=== PATIENT | female | born 1945 | race Caucasian/White ===

== ENCOUNTER 2020-04-19 12:01 | Emergency (ER) | payer SELFPAY | END 2020-04-19 12:16 | disposition left against medical advice (07) | LOC: EXPBETH 12:15 | PROVIDERS: Emergency Provider Nurse Practitioner | DX: Z53.21 Procedure and treatment not carried out due to patient leaving prior to being seen by health care provider (principal) | CPT/HCPCS: 99199 ==

== ENCOUNTER 2020-04-19 12:03 | Emergency (ER) | payer MEDICARE, OTHER, SELFPAY ==
[2020-04-19 12:15] VITALS: BP 180/86; PULSE 74; RESP 20; TEMP 37.3; O2SAT 100
== END 2020-04-19 12:25 | disposition left against medical advice (07) ==
LOC: EXPBETH 12:07
PROVIDERS: Emergency Provider Nurse Practitioner; PCP Internal Medicine
DX: Z53.21 Procedure and treatment not carried out due to patient leaving prior to being seen by health care provider (principal)
CPT/HCPCS: 99199

== ENCOUNTER 2021-08-09 08:23 | Emergency (ER) | payer MEDICARE, OTHER, SELFPAY ==
--- NOTE | ~2021-08-09 | XR_ITS ---
EXAMINATION: XR chest 2V EXAM DATE: 08/09/2021 09:54 INDICATION: Cough for 2 days, history of bypass 2015. TECHNIQUE: Frontal and lateral projections of the chest obtained and reviewed. Comparison is made to prior examination from 03/30/2022. FINDINGS: The lungs are hyperinflated which can be seen with chronic obstructive pulmonary disease ( a clinical diagnosis of functional impairment), but is not diagnostic of it. Sternotomy wires are pre sent without findings to suggest sternal dehiscence. The lungs are clear. There are no pleural effus ions. The cardiomediastinal silhouette is within normal limits. There is no pneumothorax suspected. The bones and soft tissues are unremarkable. There is aortic arteriosclerosis. IMPRESSION: 1. No acute cardiopulmonary findings. 2. Hyperinflation. Reviewed, dictated and finalized at location A.
[2021-08-09 08:38] VITALS: BP 112/56; PULSE 89; RESP 16; TEMP 37.4; O2SAT 98
--- NOTE | 2021-08-09 09:29 | ED.URI ---
HPI - URI/Sore Throat General Chief Complaint: Upper Respiratory Infection Stated Complaint: upper Respiratory w fever Source: patient Mode of arrival: ambulatory Limitations: no limitations History of Present Illness HPI Narrative: Patient is a 76-year-old female who presents complaining of cough x1-2 days. She reports increased cough last pm with difficulty sleeping. She reports mild body aches and low-grade fever this a.m. Patient reports mild sore throat. Patient is vaccinated for Covid x2. She denies known exposure. She denies taking [id number]-[id number] medications prior to arrival. Related Data Home Medications Medication Instructions Recorded Confirmed amlodipine 08/09/21 aspirin 81 mg PO DAILY 08/09/21 08/09/21 atorvastatin 08/09/21 losartan 08/09/21 metoprolol tartrate 08/09/21 vitamin A-vitamin C-vit E-min tablet 08/09/21 [Ocuvite] vitamins A,C,T-gahv-[id number] 2 tablet PO BID 08/09/21 08/09/21 [PreserVision AREDS] Allergies Allergy/AdvReac Type Severity Reaction Status Date / Time No Known Allergies Allergy Verified 08/09/21 09:14 Review of Systems Review of Systems: CONSTITUTIONAL: Denies fever, chills, or sweats. EYES: Denies visual changes, redness, or discharge. ENT: Reports sore throat CARDIOVASCULAR: Denies chest pain, palpitations, or edema. RESPIRATORY: Reports cough GASTROINTESTINAL: Denies abdominal pain, nausea, vomiting, or diarrhea. GENITOURINARY: Denies dysuria or hematuria. SKIN: Denies rash or itching. MUSCULOSKELETAL: Denies back pain, joint pain, or myalgia. NEUROLOGIC: Denies headache, numbness, dizziness, or weakness. PSYCHIATRIC: Denies anxiety or depression. [facility] Past Medical History Medical History Breast cancer Bronchitis COPD (chronic obstructive pulmonary disease) Gastritis HTN (hypertension) Hypercholesterolemia Macular degeneration Shingles Urinary tract infection Surgical History Surgical History H/O mastectomy Hx of CABG Social History Social History (Updated 08/09/21 @ 14:49 by EMEKA Mueller) Smoking status: Former smoker Tobacco type: cigarettes Alcohol intake: current Alcohol use details: Occasional Substance use: never Living arrangements: with family Occupation/Education: retired Comments At the time of signature, I have reviewed and agree with nursing past medical, surgical, social, and family history unless otherwise noted. Please see nursing chart for further information. There is no relevant family history pertinent to the presenting complaint. Exam Narrative: GENERAL: Well-appearing, well-nourished, and in no acute distress. HEAD: Normocephalic, atraumatic. EYES: EOMI. No redness or drainage. Conjunctiva are normal. ENT: Mucous membranes pink and moist. Nares clear. No rhinorrhea. TMs normal bilaterally. Throat mild erythema. Uvula midline. NECK: AROM. Supple. No lymphadenopathy. CHEST: No respiratory distress. Clear to auscultation. HEART: Regular rate and rhythm. EXTREMITIES: Normal range of motion. No edema. SKIN: Warm, dry, no rash. NEURO: No focal deficits. Alert and oriented x3. Gait steady. PSYCH: Normal affect. No signs of depression or anxiety. Course Vital Signs Vital signs: Vital Signs Temperature 37.4 C 08/09/21 08:38 Pulse Rate 89 08/09/21 08:38 Respiratory Rate 16 08/09/21 08:38 Blood Pressure 112/56 L 08/09/21 08:38 Pulse Oximetry 98 08/09/21 08:38 Temperature 37.4 C 08/09/21 08:38 Pulse Rate 89 08/09/21 08:38 Respiratory Rate 16 08/09/21 08:38 Blood Pressure 112/56 L 08/09/21 08:38 Pulse Oximetry 98 08/09/21 08:38 Reviewed MDM - URI/Sore Throat MDM Narrative Medical decision making narrative: Patient's rapid strep and rapid Covid are negative. PCR sent off at this time. Patient is anxious and requesting Covid testing.
[2021-08-11 18:40] LABS: SARS-CoV-2 RNA PCR Negative
== END 2021-08-09 10:30 | disposition home or self-care (01) ==
PROVIDERS: Emergency Provider Nurse Practitioner; PCP Internal Medicine
DX: J06.9 Acute upper respiratory infection, unspecified (principal); Z20.822 Contact with and (suspected) exposure to COVID-19; Z85.3 Personal history of malignant neoplasm of breast; J44.9 Chronic obstructive pulmonary disease, unspecified; I10 Essential (primary) hypertension; E78.00 Pure hypercholesterolemia, unspecified; H35.30 Unspecified macular degeneration; Z90.10 Acquired absence of unspecified breast and nipple; Z95.1 Presence of aortocoronary bypass graft
CPT/HCPCS: 71046; 87420; 87426; 87804; 99213; C9803; G0463; U0003; U0005